=== PATIENT | female | born 1955 | race Caucasian/White ===

== ENCOUNTER 2017-03-31 20:42 | Observation (INO) | payer OTHER ==
--- NOTE | 2017-03-31 21:57 | PDOC ---
History of Present Illness - General Chief Complaint: Pain Stated Complaint: ABD PAIN/FEVER Time Seen by Provider: 03/31/17 21:34 History Source: Patient Exam Limitations: No Limitations - History of Present Illness Travel History: No Initial Comments: 03/31/17 21:55 61-year-old female with a history of diverticulitis presents to the emergency department complaining of lower abdominal pains. Pain is described as 9/10 constant, nonradiating sharp discomfort with subjective fever, nausea but no vomiting x2 weeks. Patient denies chest pain, shortness of breath, flank pains, urinary symptoms: Frequency/urgency/hesitancy, hematuria. Patient says pain is exacerbated when eating and there are no alleviating factors. Patient says the pains feel similar to her previous diverticulitis. Timing/Duration: reports: constant Quality: reports: mild Abdominal Pain Onset Location: reports: RLQ, LLQ Pain Radiation: reports: no radiation Past History - Past Medical History Allergies/Adverse Reactions: Allergies Allergy/AdvReac Type Severity Reaction Status Date / Time No Known Allergies Allergy Verified 03/31/17 20:57 Home Medications: Ambulatory Orders NK [No Known Home Medication] 04/01/17 Other medical history: Pt denies - Surgical History Cholecystectomy: Yes - Psycho/Social/Smoking Cessation Hx Suicidal Ideation: No Smoking History: Never smoked Information on smoking cessation initiated: No Hx Alcohol Use: No Drug/Substance Use Hx: No Substance Use Type: None Review of Systems - Review of Systems Able to Perform ROS?: Yes Comments:: 03/31/17 21:57 CONSTITUTIONAL: +subjective fever Absent: chills, diaphoresis, generalized weakness, malaise, loss of appetite HEENT: Absent: rhinorrhea, nasal congestion, throat pain, throat swelling, difficulty swallowing, mouth swelling, ear pain, eye pain, visual Changes CARDIOVASCULAR: Absent: chest pain, loss of consciousness, palpitations, irregular heart rate, peripheral edema RESPIRATORY: Absent: cough, shortness of breath, dyspnea with exertion, orthopnea, wheezing, stridor, hemoptysis GASTROINTESTINAL: L>RLQ pain, +nausea Absent: abdominal distension, vomiting, diarrhea, constipation, melena, hematochezia GENITOURINARY: Absent: dysuria, frequency, urgency, hesitancy, hematuria, flank pain, genital pain MUSCULOSKELETAL: Absent: myalgia, arthralgia, joint swelling SKIN: Absent: rash, itching, pallor HEMATOLOGIC/IMMUNOLOGIC: Absent: easy bleeding, easy bruising, lymphadenopathy, frequent infections ENDOCRINE: Absent: unexplained weight gain, unexplained weight loss, heat intolerance, cold intolerance NEUROLOGIC: Absent: headache, focal weakness or paresthesias, dizziness, unsteady gait, seizure, mental status changes, bladder or bowel incontinence PSYCHIATRIC: Absent: anxiety, depression, suicidal or homicidal ideation, hallucinations. Is the patient limited Yakut proficient: No *Physical Exam - Vital Signs Last Vital Signs Temp Pulse Resp BP Pulse Ox 98.1 F 77 19 113/62 97 03/31/17 20:57 03/31/17 20:57 03/31/17 20:57 03/31/17 20:57 03/31/17 20:57 - Physical Exam Comments: 03/31/17 21:58 GENERAL: Well developed, well nourished. Awake and alert. No acute distress. HEENT: Normocephalic, atraumatic. PERRLA, EOMI. No conjunctival pallor. Sclera are non- icteric. Moist mucous membranes. Oropharynx is clear. NECK: Supple. Full ROM. No JVD. Carotid pulses 2+ and symmetric, without bruits. No thyromegaly. No lymphadenopathy. CARDIOVASCULAR: Regular rate and rhythm. No murmurs, rubs, or gallops. Distal pulses are 2+ and symmetric. PULMONARY: No evidence of respiratory distress. Lungs clear to auscultation bilaterally. No wheezing, rales or rhonchi. ABDOMINAL: LLQ>RLQ pain on deep palp Soft. Non-distended. No rebound or guarding. No organomegaly. Normoactive bowel sounds. MUSCULOSKELETAL Normal range of motion at all joints. No bony deformities or tenderness. No CVA tenderness. EXTREMITIES: No cyanosis. No clubbing. No edema. No calf tenderness. SKIN: Warm and dry. Normal capillary refill. No rashes. No jaundice. NEUROLOGICAL: Alert, awake, appropriate. Cranial nerves 2-12 intact. No deficits to light touch and temperature in face, upper extremities and lower extremities. No motor deficits in the in face, upper extremities and lower extremities. Normoreflexic in the upper and lower extremities. Normal speech. Toes are down- going bilaterally. Gait is normal without ataxia. PSYCHIATRIC: Cooperative. Good eye contact. Appropriate mood and affect. ED Treatment Course - LABORATORY CBC & Chemistry Diagram: 03/31/17 20:08 03/31/17 20:08 *DC/Admit/Observation/Transfer Diagnosis at time of Disposition: Sigmoid diverticulitis - Discharge Dispostion Condition at time of disposition: Stable Admit: Yes - Referrals Referrals: Kamila Metcalf MD [Primary Care Provider] -
[2017-03-31] MEDS ORDERED: SODIUM CHLORIDE 1,000 ML IV STA (22:04)
[2017-03-31 22:28] LABS: BASOPHIL 0.4 % (0-2.0); EOSINOPHIL 0.5 % (0-4.5); MCH 29.3 pg (25.7-33.7); MCHC 32.7 g/dl (32.0-36.0); MEAN CELL VOLUME 89.7 fl (80-96); MEAN PLT VOLUME 8.3 fl (7.5-11.1); NEUTROPHILS 67.4 % (42.8-82.8); PLATELET COUNT 294 K/MM3 (134-434); RDW 13.2 % (11.6-15.6); WHITE BLOOD COUNT 14.5 K/mm3 (4.0-10.0)
[2017-03-31 22:30] LABS: URINE APPEARANCE CLEAR; URINE BILIRUBIN NEGATIVE (NEGATIVE); URINE BLOOD 1+ (NEGATIVE); URINE COLOR STRAW; URINE GLUCOSE (UA) NEGATIVE (NEGATIVE); URINE KETONE TRACE (NEGATIVE); URINE LEUK ESTERASE NEGATIVE (NEGATIVE); URINE NITRITE NEGATIVE (NEGATIVE); URINE PROTEIN NEGATIVE (NEGATIVE); URINE UROBILINOGEN NEGATIVE mg/dL (0.2-1.0)
[2017-03-31 23:06] LABS: ALBUMIN 3.2 g/dl (3.4-5.0); ALK PHOS 84 U/L (45-117); ANION GAP 6 (8-16); BILIRUBIN,TOTAL 0.5 mg/dL (0.2-1.0); CALCIUM 8.5 mg/dL (8.5-10.1); CO2 29 mmol/L (21-32); CREATININE 0.6 mg/dL (0.55-1.02); GLUCOSE,RANDOM 94 mg/dL (74-106); SGOT/AST 23 U/L (15-37); SGPT/ALT 43 U/L (12-78); TOT PROT 7.1 g/dl (6.4-8.2)
[2017-03-31 23:57] LABS: URINE BACTERIA RARE /hpf (NONE SEEN); URINE RBC 1 /hpf (0-3); URINE WBC 2 /hpf (3-5)
[2017-04-01] MEDS ORDERED: METRONIDAZOLE 500 MG PREMIXED 100 ML IVPB ONE ×2 (02:24→03:02)
[2017-04-01] MEDS ORDERED: LEVOFLOXACIN 500 MG IVPB 100 ML IVPB ONE ×2 (02:24→06:15)
[2017-04-01] MEDS: SODIUM CHLORIDE 1,000 ML IV SCH ×2 (03:14→06:33)
--- NOTE | 2017-04-01 03:19 | HP ---
CHIEF COMPLAINT: " Nausea, vomiting, abdominal pain" PCP: Dr. Mitra Nicole ([place]) HISTORY OF PRESENT ILLNESS: Patient is a 61-year-old female with a history of diverticulitis presented to the emergency department with the chief complaints of nausea, vomiting, abdominal pain x 2weeks. As per the patient, she was apparently well until March 22 when she suddenly started having high grade fevers (Tmax-102F) on/off, associated with chills, but no rigors. It was controlled with tylenol. After two days, she got more sick, had nausea, non bilious, non projectile vomiting. Patient then went to her PCP ( Dr. Manriquez) who prescribed her Ciprofloxacin (Given the h/o prior diverticulitis). After a couple of days, she had several episodes of non bloody diarrhoea, was tested for C. diff which was negative. Her symptoms didn't resolve. Had decreased appetite, dryness of mucous membrane, had low grade fever. It was associated with severe abdominal pain, located in the lower abdomen, crampy in nature, 8-9/10 in severity, non radiating. Hence she came in to the ED for further evaluation and treatment. Denies chest pain, sob, cough, palpitation, headache, dizziness, tingling or numbness. Bladder habit normal. Sleep disturbed since illness. Last colonoscopy done 3 years ago which was normal. ER course was notable for: (1) Afebrile; Hemodynamically stable, leukocytosis of 14.5 (2) Abdominal/Pelvis CT abdomen with contrast (3) IV NS, Levaquin, Flagyl Recent Travel: None PAST MEDICAL HISTORY: Diverticulitis PAST SURGICAL HISTORY: Cholecystectomy, 3 c-sections Social History: Smoking: Denies Alcohol: Occasional Drugs: Denies Family History: Brother- h/o colon cancer (now in remission), diverticulitis; Sister- skin cancer Both daughters had cholecystectomy. Allergies No Known Allergies Allergy (Verified 03/31/17 20:57) HOME MEDICATIONS: Home Medications Medication Instructions Recorded NK [No Known Home Medication] 04/01/17 REVIEW OF SYSTEMS CONSTITUTIONAL: Present: fever, chills, loss of appetite, Absent: diaphoresis, generalized weakness, malaise, weight change HEENT: Absent: rhinorrhea, nasal congestion, throat pain, throat swelling, difficulty swallowing, mouth swelling, ear pain, eye pain, visual changes CARDIOVASCULAR: Absent: chest pain, syncope, palpitations, irregular heart rate, lightheadedness , peripheral edema RESPIRATORY: Absent: cough, shortness of breath, dyspnea with exertion, orthopnea, wheezing, stridor, hemoptysis GASTROINTESTINAL: Present: abdominal pain, abdominal distension, nausea, vomiting, diarrhea Absent: constipation, melena, hematochezia GENITOURINARY: Absent: dysuria, frequency, urgency, hesitancy, hematuria, flank pain, genital pain MUSCULOSKELETAL: Absent: myalgia, arthralgia, joint swelling, back pain, neck pain SKIN: Absent: rash, itching, pallor HEMATOLOGIC/IMMUNOLOGIC: Absent: easy bleeding, easy bruising, lymphadenopathy, frequent infections ENDOCRINE: Absent: unexplained weight gain, unexplained weight loss, heat intolerance, cold intolerance NEUROLOGIC: Absent: headache, focal weakness or paresthesias, dizziness, unsteady gait, seizure, mental status changes, bladder or bowel incontinence PSYCHIATRIC: Absent: anxiety, depression, suicidal or homicidal ideation, hallucinations. PHYSICAL EXAMINATION Vital Signs - 24 hr 03/31/17 20:57 Temperature 98.1 F Pulse Rate 77 Respiratory 19 Rate Blood Pressure 113/62 O2 Sat by Pulse 97 Oximetry (%) GENERAL: female, Awake, alert, and fully oriented, lying comfortably in bed, in no acute distress. HEAD: Normal with no signs of trauma. EYES: EOM intact, no pallor or icterus. EARS, NOSE, THROAT: Ears normal. Moist mucous membranes. NECK: Supple. LUNGS: Breath sounds equal, clear to auscultation bilaterally. No wheezes, and no crackles. No accessory muscle use. HEART: Regular rate and rhythm, normal S1 and S2 without murmur, rub or gallop. ABDOMEN: Soft, tenderness in the lower abdomen, rebound tenderness on left and right lower quadrant, not distended, normoactive bowel sounds, no guarding, no rebound, no masses. No hepatomegaly or splenomegaly. MN exam-deferred. MUSCULOSKELETAL: Normal range of motion at all joints. No bony deformities or tenderness. No CVA tenderness. UPPER EXTREMITIES: 2+ pulses, warm, well-perfused. No cyanosis. No clubbing. No peripheral edema. LOWER EXTREMITIES: 2+ pulses, warm, well-perfused. No calf tenderness. No peripheral edema. NEUROLOGICAL: No facial droop, Cranial nerves II-XII intact. Normal speech. Gait not observed. PSYCHIATRIC: Cooperative. Good eye contact. Appropriate mood and affect. SKIN: Warm, dry, normal turgor, no rashes or lesions noted, normal capillary refill. Laboratory Results - last 24 hr 03/31/17 03/31/17 03/31/17 20:08 20:08 22:08 WBC 14.5 H RBC 4.34 Hgb 12.7 Hct 39.0 MCV 89.7 MCH 29.3 MCHC 32.7 RDW 13.2 Plt Count 294 MPV 8.3 Neutrophils % 67.4 Lymphocytes % 23.5 Monocytes % 8.2 Eosinophils % 0.5 Basophils % 0.4 Sodium 141 Potassium 3.5 Chloride 106 Carbon Dioxide 29 Anion Gap 6 L BUN 7 Creatinine 0.6 Creat Clearance w eGFR > 60 Random Glucose 94 Calcium 8.5 Total Bilirubin 0.5 AST 23 ALT 43 Alkaline Phosphatase 84 Total Protein 7.1 Albumin 3.2 L Urine Color Straw Urine Appearance Clear Urine pH 7.0 Urine Protein Negative Urine Glucose (UA) Negative Urine Ketones Trace H Urine Blood 1+ H Urine Nitrite Negative Urine Bilirubin Negative Urine Urobilinogen Negative Ur Leukocyte Esterase Negative Urine RBC 1 Urine WBC 2 Ur Epithelial Cells Rare Urine Bacteria Rare ASSESSMENT/PLAN: Patient is a 61-year-old female with a history of diverticulitis presented to the emergency department with the chief complaints of nausea, vomiting, abdominal pain. # Abdominal pain-likely due to uncomplicated moderate sigmoid diverticulitis Patient presented with nausea, vomiting, abd pain, with several days of fever at home (T-max 102F), failed outpatient antibiotic therapy. On arrival, patient was Afebrile; Hemodynamically stable, leukocytosis of 14.5 Abdominal/Pelvis CT abdomen with contrast was done which was read as uncomplicated moderate sigmoid diverticulitis (by [facility]) Patient received IV NS, Levaquin, Flagyl in the ED Placed on observation NPO IV NS @ 100mls/hr x 2 bags then reevaluate for fluid management IV Levaquin 500mg Daily-Day 1 IV Metronidazole 500mg Q8H- Day 1 IV Morphine 2mg Q6H PRN for pain control IV Zofran 4mg PRN. GI consult requested. F/up with GI as outpatient. # FEN IV NS @ 100mls/hr Electrolytes normal NPO, can advance to clears in the afternoon if she tolerates. # Prophylaxis For GI: Not indicated For DVT: On Heparin sq # Dispo: Placed in observation. Duration of stay cannot be determined at this time. Illness, Investigation and plan of care explained to the patient. She verbalized understanding. Case seen and discussed with Dr. Ashby. Visit type - Emergency Visit Emergency Visit: Yes ED Registration Date: 04/01/17 Care time: The patient presented to the Emergency Department on the above date and was hospitalized for further evaluation of their emergent condition. - New Patient This patient is new to me today: Yes Date on this admission: 04/01/17 - Critical Care Critical Care patient: No
--- NOTE | 2017-04-01 03:27 | PN ---
Teaching Attending Note Name of Resident: Heidy Foster ATTENDING PHYSICIAN STATEMENT I saw and evaluated the patient. I reviewed the resident's note and discussed the case with the resident. I agree with the resident's findings and plan as documented. SUBJECTIVE: 61 y/o c/o lower quadrant abdominal pain , with fever and vomiting, presented to the ED and on evaluation found to have Diverticulitis. OBJECTIVE: Gen; A&Ox3 in mild distress, afebrile HEENT: PERRLA, EOMI, MMM CVS: RRR Lungs: Equal b/l air entry Abd: soft, tender LLQ especially , no guarding or rebound, BS+. Ext: No edema, nl rom CBCD WBC 14.5 K/mm3 (4.0-10.0) H 03/31/17 20:08 RBC 4.34 M/mm3 (3.60-5.2) 03/31/17 20:08 Hgb 12.7 GM/dL (10.7-15.3) 03/31/17 20:08 Hct 39.0 % (32.4-45.2) 03/31/17 20:08 MCV 89.7 fl (80-96) 03/31/17 20:08 MCHC 32.7 g/dl (32.0-36.0) 03/31/17 20:08 RDW 13.2 % (11.6-15.6) 03/31/17 20:08 Plt Count 294 K/MM3 (134-434) 03/31/17 20:08 MPV 8.3 fl (7.5-11.1) 03/31/17 20:08 CMP Sodium 141 mmol/L (136-145) 03/31/17 20:08 Potassium 3.5 mmol/L (3.5-5.1) 03/31/17 20:08 Chloride 106 mmol/L (98-107) 03/31/17 20:08 Carbon Dioxide 29 mmol/L (21-32) 03/31/17 20:08 Anion Gap 6 (8-16) L 03/31/17 20:08 BUN 7 mg/dL (7-18) 03/31/17 20:08 Creatinine 0.6 mg/dL (0.55-1.02) 03/31/17 20:08 Creat Clearance w eGFR > 60 (>60) 03/31/17 20:08 Calcium 8.5 mg/dL (8.5-10.1) 03/31/17 20:08 Total Bilirubin 0.5 mg/dL (0.2-1.0) 03/31/17 20:08 AST 23 U/L (15-37) 03/31/17 20:08 ALT 43 U/L (12-78) 03/31/17 20:08 Alkaline Phosphatase 84 U/L (45-117) 03/31/17 20:08 Total Protein 7.1 g/dl (6.4-8.2) 03/31/17 20:08 Albumin 3.2 g/dl (3.4-5.0) L 03/31/17 20:08 ASSESSMENT AND PLAN: Acute diverticulitis NPO then advance as tolerated to clear liquid diet IVF NS@125cc/h Levofloxacin and flagyl Tylenol prn for pain and fever morphine 2mg IVP for severe 9-10/10 pain Zofran prn Case d/w residents and plans agreed on.
[2017-04-01] MEDS ORDERED: morphine CARPU-JECT 2 MG/1 ML DISP.SYRIN IVPUSH PRN (04:06)
[2017-04-01] MEDS: METRONIDAZOLE 500 MG PREMIXED 100 ML IVPB SCH ×3 (04:53→21:45)
[2017-04-01 07:20] VITALS: BMI 26.5
[2017-04-01] MEDS ORDERED: ONDANSETRON 4 MG/2 ML VIAL IVPB PRN (07:42)
[2017-04-01] MEDS: HEPARIN NA (PORCINE) 5,000 UNITS/ML 1ML VIAL SQ SCH ×2 (10:33→21:45)
--- NOTE | 2017-04-01 10:58 | HOSP ---
Subjective - Review of Symptoms Events since last encounter: Patient is a 61-year-old female with a history of diverticulitis presented to the emergency department with the chief complaints of nausea, vomiting, abdominal pain x 2weeks, non bloody diarrhea. having diarrhea on and off. Daughter and son at bedside. Vital Signs Temperature 98.3 F 04/01/17 06:00 Pulse Rate 75 04/01/17 06:00 Respiratory Rate 18 04/01/17 06:00 Blood Pressure 110/55 04/01/17 06:00 O2 Sat by Pulse Oximetry (%) 98 04/01/17 06:00 GENERAL: female, Awake, alert, and fully oriented, lying comfortably in bed, in no acute distress. HEAD: Normal with no signs of trauma. EYES: EOM intact, no pallor or icterus. EARS, NOSE, THROAT: Ears normal. Moist mucous membranes. NECK: Supple. LUNGS: Breath sounds equal, clear to auscultation bilaterally. No wheezes, and no crackles. No accessory muscle use. HEART: Regular rate and rhythm, normal S1 and S2 without murmur, rub or gallop. ABDOMEN: Soft, mild tenderness in the LLQ , no rebound tenderness , not distended, positive for bowel sounds, No hepatomegaly or splenomegaly. MUSCULOSKELETAL: Normal range of motion at all joints. No bony deformities or tenderness. No CVA tenderness. EXTREMITIES: 2+ pulses, warm, well-perfused. No cyanosis. No clubbing. No peripheral edema. NEUROLOGICAL: No facial droop, Cranial nerves II-XII intact. Normal speech. Gait not observed. PSYCHIATRIC: Cooperative. Good eye contact. Appropriate mood and affect. SKIN: Warm, dry, normal turgor, no rashes or lesions noted, normal capillary refill. CBCD WBC 14.5 K/mm3 (4.0-10.0) H 03/31/17 20:08 RBC 4.34 M/mm3 (3.60-5.2) 03/31/17 20:08 Hgb 12.7 GM/dL (10.7-15.3) 03/31/17 20:08 Hct 39.0 % (32.4-45.2) 03/31/17 20:08 MCV 89.7 fl (80-96) 03/31/17 20:08 MCHC 32.7 g/dl (32.0-36.0) 03/31/17 20:08 RDW 13.2 % (11.6-15.6) 03/31/17 20:08 Plt Count 294 K/MM3 (134-434) 03/31/17 20:08 MPV 8.3 fl (7.5-11.1) 03/31/17 20:08 CMP Sodium 141 mmol/L (136-145) 03/31/17 20:08 Potassium 3.5 mmol/L (3.5-5.1) 03/31/17 20:08 Chloride 106 mmol/L (98-107) 03/31/17 20:08 Carbon Dioxide 29 mmol/L (21-32) 03/31/17 20:08 Anion Gap 6 (8-16) L 03/31/17 20:08 BUN 7 mg/dL (7-18) 03/31/17 20:08 Creatinine 0.6 mg/dL (0.55-1.02) 03/31/17 20:08 Creat Clearance w eGFR > 60 (>60) 03/31/17 20:08 Random Glucose 94 mg/dL (74-106) 03/31/17 20:08 Calcium 8.5 mg/dL (8.5-10.1) 03/31/17 20:08 Total Bilirubin 0.5 mg/dL (0.2-1.0) 03/31/17 20:08 AST 23 U/L (15-37) 03/31/17 20:08 ALT 43 U/L (12-78) 03/31/17 20:08 Alkaline Phosphatase 84 U/L (45-117) 03/31/17 20:08 Total Protein 7.1 g/dl (6.4-8.2) 03/31/17 20:08 Albumin 3.2 g/dl (3.4-5.0) L 03/31/17 20:08 Current Medications Generic Name Dose Route Start Last Admin Trade Name Emmanuel PRN Reason Stop Dose Admin Heparin Sodium (Porcine) 5,000 unit 04/01/17 10:00 04/01/17 10:33 Heparin - SQ 5,000 unit BID GRADY Administration Sodium Chloride 1,000 mls @ 100 mls/hr 04/01/17 03:00 04/01/17 06:33 Normal Saline - IV 04/02/17 12:59 100 mls/hr ASDIR GRADY Administration Metronidazole 100 mls @ 100 mls/hr 04/01/17 04:15 04/01/17 04:53 Flagyl 500mg Premixed Ivpb - IVPB Not Given Q8H GRADY Levofloxacin 100 mls @ 100 mls/hr 04/02/17 10:00 Levaquin 500 Mg Premixed Ivpb - IVPB DAILY GRADY Morphine Sulfate 2 mg 04/01/17 04:06 Morphine Injection - IVPUSH Q6H PRN PAIN Ondansetron HCl 4 mg 04/01/17 07:42 Zofran Injection IVPB Q6H PRN NAUSEA Home Medications Medication Instructions Recorded Sertraline HCl [Zoloft -] 25 mg PO DAILY 04/01/17 Urine Test Results Urine Color Straw 03/31/17 22:08 Urine Appearance Clear 03/31/17 22:08 Urine pH 7.0 (5.0-8.0) 03/31/17 22:08 Urine Protein Negative (NEGATIVE) 03/31/17 22:08 Urine Glucose (UA) Negative (NEGATIVE) 03/31/17 22:08 Urine Ketones Trace (NEGATIVE) H 03/31/17 22:08 Urine Blood 1+ (NEGATIVE) H 03/31/17 22:08 Urine Nitrite Negative (NEGATIVE) 03/31/17 22:08 Urine Bilirubin Negative (NEGATIVE) 03/31/17 22:08 Ur Leukocyte Esterase Negative (NEGATIVE) 03/31/17 22:08 Urine RBC 1 /hpf (0-3) 03/31/17 22:08 Urine WBC 2 /hpf (3-5) 03/31/17 22:08 Ur Epithelial Cells Rare /hpf (FEW) 03/31/17 22:08 Urine Bacteria Rare /hpf (NONE SEEN) 03/31/17 22:08 A/P: Patient is a 61-year-old female with a history of diverticulitis presented to the emergency department with the chief complaints of nausea, vomiting, abdominal pain x 2 weeks. # Acute sigmoid diverticulitis on IV antibiotics continue; Gi consult appreciated will advance diet to clears and as tolerated . DVT Px: On Heparin sq Physical Examination Vital Signs: Vital Signs Temperature 98.3 F 04/01/17 06:00 Pulse Rate 75 04/01/17 06:00 Respiratory Rate 18 04/01/17 06:00 Blood Pressure 110/55 04/01/17 06:00 O2 Sat by Pulse Oximetry (%) 98 04/01/17 06:00
--- NOTE | 2017-04-01 14:10 | CON.GI ---
Consult Consult Specialty:: Gastroenterology Referred by:: Dr Castillo Reason for Consultation:: Diverticulitis - History of Present Illness Chief Complaint: LLQ pain and diarrhea History of Present Illness: 61W has been having intermittent LLQ pain since February. The pain was associated with diarrhea initially and this has recurred with this episode. She denies any recent decrease in stool caliber of weight loss. She was treated with a 4 day course of Cipro by her PMD a few weeks ago. Yesterday her pain got worse and was associated with chills and fever. Her brother had colon cancer. She had a colonoscopy in [address] Nicole in the [place] which she reports was normal. She denies any rectal bleeding. She had an EGD with Dr Hurt remotely which was also normal. - History Source History Provided By: Patient Limitations to Obtaining History: No Limitations - Past Medical History Gastrointestinal: Yes: Diverticulitis, GERD Hepatobiliary: Yes: Cholelithiasis (s/p lap choly), Hepatitis A (remotely) Psych: Yes: Depression, Panic - Past Surgical History Past Surgical History: Yes: Cholecystectomy, Colonoscopy, (x 3), Upper Endoscopy Additional Surgical History: bunionectomy - Alcohol/Substance Use Hx Alcohol Use: No History of Substance Use: reports: None - Smoking History Smoking history: Never smoked - Social History Usual Living Arrangement: With Significant Other ADL: Independent Occupation: portfolio administrator at [employer] Place of : Other ([place]) Came to [place] (year): age 27 History of Recent Travel: No Home Medications - Allergies Allergies/Adverse Reactions: Allergies Allergy/AdvReac Type Severity Reaction Status Date / Time No Known Allergies Allergy Verified 03/31/17 20:57 - Home Medications Home Medications: Ambulatory Orders Sertraline HCl [Zoloft -] 25 mg PO DAILY 04/01/17 Family Disease History - Family Disease History Family Disease History: Heart Disease: Father ( [place] age 65), [place]: Brother ( colon cancer), Sister (skin cancer), Other: Mother ( of a GI problem) Review of Systems - Review of Systems Constitutional: reports: Chills, Fever Eyes: reports: No Symptoms HENT: reports: No Symptoms Neck: reports: No Symptoms Cardiovascular: reports: No Symptoms Respiratory: reports: No Symptoms Gastrointestinal: reports: Abdominal Pain, Diarrhea, Other (acid reflux) Genitourinary: reports: No Symptoms Musculoskeletal: reports: No Symptoms Neurological: reports: No Symptoms Psychiatric: reports: Anxiety, Depression Physical Exam-GI Vital Signs: Vital Signs Temperature 98.3 F 04/01/17 06:00 Pulse Rate 73 04/01/17 10:00 Respiratory Rate 18 04/01/17 10:00 Blood Pressure 105/59 04/01/17 10:00 O2 Sat by Pulse Oximetry (%) 98 04/01/17 06:00 CBC,CMP WBC 14.5 K/mm3 (4.0-10.0) H 03/31/17 20:08 RBC 4.34 M/mm3 (3.60-5.2) 03/31/17 20:08 Hgb 12.7 GM/dL (10.7-15.3) 03/31/17 20:08 Hct 39.0 % (32.4-45.2) 03/31/17 20:08 MCV 89.7 fl (80-96) 03/31/17 20:08 MCH 29.3 pg (25.7-33.7) 03/31/17 20:08 MCHC 32.7 g/dl (32.0-36.0) 03/31/17 20:08 RDW 13.2 % (11.6-15.6) 03/31/17 20:08 Plt Count 294 K/MM3 (134-434) 03/31/17 20:08 MPV 8.3 fl (7.5-11.1) 03/31/17 20:08 Neutrophils % 67.4 % (42.8-82.8) 03/31/17 20:08 Lymphocytes % 23.5 % (8-40) 03/31/17 20:08 Monocytes % 8.2 % (3.8-10.2) 03/31/17 20:08 Eosinophils % 0.5 % (0-4.5) 03/31/17 20:08 Basophils % 0.4 % (0-2.0) 03/31/17 20:08 Sodium 141 mmol/L (136-145) 03/31/17 20:08 Potassium 3.5 mmol/L (3.5-5.1) 03/31/17 20:08 Chloride 106 mmol/L (98-107) 03/31/17 20:08 Carbon Dioxide 29 mmol/L (21-32) 03/31/17 20:08 Anion Gap 6 (8-16) L 03/31/17 20:08 BUN 7 mg/dL (7-18) 03/31/17 20:08 Creatinine 0.6 mg/dL (0.55-1.02) 03/31/17 20:08 Creat Clearance w eGFR > 60 (>60) 03/31/17 20:08 Random Glucose 94 mg/dL (74-106) 03/31/17 20:08 Calcium 8.5 mg/dL (8.5-10.1) 03/31/17 20:08 Total Bilirubin 0.5 mg/dL (0.2-1.0) 03/31/17 20:08 AST 23 U/L (15-37) 03/31/17 20:08 ALT 43 U/L (12-78) 03/31/17 20:08 Alkaline Phosphatase 84 U/L (45-117) 03/31/17 20:08 Total Protein 7.1 g/dl (6.4-8.2) 03/31/17 20:08 Albumin 3.2 g/dl (3.4-5.0) L 03/31/17 20:08 Current Medications Generic Name Dose Route Start Last Admin Trade Name Meñoq PRN Reason Stop Dose Admin Heparin Sodium (Porcine) 5,000 unit 04/01/17 10:00 04/01/17 10:33 Heparin - SQ 5,000 unit BID GRADY Administration Sodium Chloride 1,000 mls @ 100 mls/hr 04/01/17 03:00 04/01/17 06:33 Normal Saline - IV 04/02/17 12:59 100 mls/hr ASDIR GRADY Administration Metronidazole 100 mls @ 100 mls/hr 04/01/17 04:15 04/01/17 13:33 Flagyl 500mg Premixed Ivpb - IVPB 100 mls/hr Q8H GRADY Administration Levofloxacin 100 mls @ 100 mls/hr 04/02/17 10:00 Levaquin 500 Mg Premixed Ivpb - IVPB DAILY GRADY Morphine Sulfate 2 mg 04/01/17 04:06 Morphine Injection - IVPUSH Q6H PRN PAIN Ondansetron HCl 4 mg 04/01/17 07:42 Zofran Injection IVPB Q6H PRN NAUSEA Constitutional: Yes: Anxious Eyes: Yes: Conjunctiva Clear HENT: Yes: Normocephalic Neck: Yes: Supple Cardiovascular: Yes: Regular Rate and Rhythm Respiratory: Yes: CTA Bilaterally Gastrointestinal Inspection: Yes: Distention, Scars (healed vertical suprapubic and laparoscopic incisions) ...Auscultate: Yes: Hypoactive Bowel Sounds ...Palpate: Yes: Tenderness (LLQ but no reblund, no kenya) ...Rectal Exam: Yes: Guaiac Negative, Sphincter Tone Normal, Other (no kenya) Imaging - Results Cat Scan: Report Reviewed (Raphael Liang Name: [facility] Phys: Valeria Paredes : 1955 Age: 61 Sex: F [facility] Acct: [id number] Loc: [address] Exam Date: Status: [place] [address] Unit Number: [id number] EXAM#: TYPE/EXAM: RESULT: [id number] CT/ ABDOMEN PELVIS CT WITH CONTR Abdomen and pelvis CT (with intravenous contrast) Clinical information: lower abdominal pain, history of diverticulitis Multiplanar imaging was performed utilizing intravenous and oral contrast. No prior imaging studies are available at this facility for direct comparison. Sigmoid diverticulosis is seen with associated concentric wall edema involving the mid to lower third as well as pericolonic edema consistent with acute diverticulitis. No extraluminal air, abscess, free intraperitoneal fluid or bowel obstruction is noted. The liver, pancreas, adrenal glands and kidneys demonstrate no discrete noncontrast abnormality. Status post cholecystectomy. No definite biliary tract dilatation. There is no aortic aneurysm. No obvious lymphadenopathy is noted. The appendix appears unremarkable. No definite pelvic pathology is seen. Impression: Acute uncomplicated sigmoid diverticulitis. Status post cholecystectomy. Reported By: Jayce Blanc MD [address] Val[address] Paredes Technologist: Miguel Painter Transcribed Date/Time: 1139 Horse [employer] Manager: Jayce Blanc Printed Date/Time: [ rep prt dt last] [ rep prt tm last] By: [ rep prt user last] Signed by: Jayce Blanc Signed on: 01-Apr-2017 11:42), Image Reviewed (sigmoid diverticulitis) Problem List - Problems (1) Family history of colon cancer Code(s): Z80.0 - FAMILY HISTORY OF MALIGNANT NEOPLASM OF DIGESTIVE ORGANS (2) Depression Code(s): F32.9 - MAJOR DEPRESSIVE DISORDER, SINGLE EPISODE, UNSPECIFIED (3) Panic anxiety syndrome Code(s): F41.0 - PANIC DISORDER WITHOUT AGORAPHOBIA Assessment/Plan Given the preceding pain and diarrhea the picture is most consistent with a smoldering diverticulitis but C diff colitis will need to be excluded. Ischemic colitis is not likely given there is no bleeding. Agree with current antibiotics. Will advance diet as tolerated. Discussed earlier with Dr Castillo. Given her FH advised repeat colonoscopy in 2019 but may need sooner if symptoms recur.
[2017-04-01] MEDS ORDERED: SODIUM CHLORIDE 1,000 ML IV STA (23:28)
[2017-04-02] MEDS: METRONIDAZOLE 500 MG PREMIXED 100 ML IVPB SCH ×3 (06:04→20:32)
[2017-04-02 08:03] LABS: BASOPHIL 0.4 % (0-2.0); EOSINOPHIL 1.2 % (0-4.5); MCHC 33.4 g/dl (32.0-36.0); MEAN CELL VOLUME 89.9 fl (80-96); MEAN PLT VOLUME 7.9 fl (7.5-11.1); NEUTROPHILS 63.5 % (42.8-82.8); PLATELET COUNT 370 K/MM3 (134-434); RDW 13.2 % (11.6-15.6); WHITE BLOOD COUNT 9.8 K/mm3 (4.0-10.0)
--- NOTE | 2017-04-02 09:18 | PN ---
Teaching Attending Note Name of Resident: James Hebert ATTENDING PHYSICIAN STATEMENT I saw and evaluated the patient. I reviewed the resident's note and discussed the case with the resident. I agree with the resident's findings and plan as documented. SUBJECTIVE: Patient is comfortable ,still continuing to have diarrhea after drinking. OBJECTIVE: Vital Signs Temperature 98.3 F 04/02/17 06:05 Pulse Rate 77 04/02/17 06:05 Respiratory Rate 20 04/02/17 06:05 Blood Pressure 106/66 04/02/17 06:05 O2 Sat by Pulse Oximetry (%) 96 04/01/17 21:00 CBCD WBC 9.8 K/mm3 (4.0-10.0) D 04/02/17 06:00 RBC 4.57 M/mm3 (3.60-5.2) 04/02/17 06:00 Hgb 13.7 GM/dL (10.7-15.3) 04/02/17 06:00 Hct 41.1 % (32.4-45.2) 04/02/17 06:00 MCV 89.9 fl (80-96) 04/02/17 06:00 MCHC 33.4 g/dl (32.0-36.0) 04/02/17 06:00 RDW 13.2 % (11.6-15.6) 04/02/17 06:00 Plt Count 370 K/MM3 (134-434) D 04/02/17 06:00 MPV 7.9 fl (7.5-11.1) 04/02/17 06:00 CMP Sodium 141 mmol/L (136-145) 03/31/17 20:08 Potassium 3.5 mmol/L (3.5-5.1) 03/31/17 20:08 Chloride 106 mmol/L (98-107) 03/31/17 20:08 Carbon Dioxide 29 mmol/L (21-32) 03/31/17 20:08 Anion Gap 6 (8-16) L 03/31/17 20:08 BUN 7 mg/dL (7-18) 03/31/17 20:08 Creatinine 0.6 mg/dL (0.55-1.02) 03/31/17 20:08 Creat Clearance w eGFR > 60 (>60) 03/31/17 20:08 Random Glucose 94 mg/dL (74-106) 03/31/17 20:08 Calcium 8.5 mg/dL (8.5-10.1) 03/31/17 20:08 Total Bilirubin 0.5 mg/dL (0.2-1.0) 03/31/17 20:08 AST 23 U/L (15-37) 03/31/17 20:08 ALT 43 U/L (12-78) 03/31/17 20:08 Alkaline Phosphatase 84 U/L (45-117) 03/31/17 20:08 Total Protein 7.1 g/dl (6.4-8.2) 03/31/17 20:08 Albumin 3.2 g/dl (3.4-5.0) L 03/31/17 20:08 Current Medications Generic Name Dose Route Start Last Admin Trade Name Freq PRN Reason Stop Dose Admin Heparin Sodium (Porcine) 5,000 unit 04/01/17 10:00 04/01/17 21:45 Heparin - SQ 5,000 unit BID GRADY Administration Sodium Chloride 1,000 mls @ 100 mls/hr 04/01/17 03:00 04/01/17 06:33 Normal Saline - IV 04/02/17 12:59 100 mls/hr ASDIR GRADY Administration Metronidazole 100 mls @ 100 mls/hr 04/01/17 04:15 04/02/17 06:04 Flagyl 500mg Premixed Ivpb - IVPB 100 mls/hr Q8H GRADY Administration Levofloxacin 100 mls @ 100 mls/hr 04/02/17 10:00 Levaquin 500 Mg Premixed Ivpb - IVPB DAILY GRADY Morphine Sulfate 2 mg 04/01/17 04:06 Morphine Injection - IVPUSH Q6H PRN PAIN Ondansetron HCl 4 mg 04/01/17 07:42 Zofran Injection IVPB Q6H PRN NAUSEA Home Medications Medication Instructions Recorded Sertraline HCl [Zoloft -] 25 mg PO DAILY 04/01/17 PE: Per resident's note Abdomen: soft, NT, NR, NG, BS positive ASSESSMENT AND PLAN: Patient is a 61-year-old female with a history of diverticulitis presented to the emergency department with the chief complaints of nausea, vomiting, abdominal pain x 2 weeks. # Acute sigmoid diverticulitis on IV antibiotics continue continue; Gi consult discussed with. will advance diet to solids, will discharge her in am if stable. DVT Px: On Heparin sq
[2017-04-02] MEDS: HEPARIN NA (PORCINE) 5,000 UNITS/ML 1ML VIAL SQ SCH ×2 (09:47→22:27)
[2017-04-02] MEDS: LEVOFLOXACIN 500 MG IVPB 100 ML IVPB SCH (09:47)
[2017-04-02] MEDS: SODIUM CHLORIDE 1,000 ML IV SCH (11:33)
--- NOTE | 2017-04-02 16:43 | PN ---
GI Progress Note Subjective: GI NOte: Pain has subsided. Tolerated solid for lunch. WBC has dropped. No fever. C diff is negative - Objective Vital Signs: Vital Signs Temperature 98.5 F 04/02/17 15:07 Pulse Rate 75 04/02/17 15:07 Respiratory Rate 18 04/02/17 15:07 Blood Pressure 117/53 04/02/17 10:00 O2 Sat by Pulse Oximetry (%) 96 04/01/17 21:00 Laboratory Tests 03/31/17 04/02/17 20:08 06:00 WBC 14.5 H 9.8 D Constitutional: Anxious ...Auscultate: Yes: Normoactive Bowel Sounds ...Palpate: Yes: Soft, Other (nontender) Labs: CBC, BMP 04/02/17 06:00 Assessment/Plan Resolving diverticulitis. Agree with advancement of diet. If tolerated can discharge tomorrow. Discussed earlier with Dr Castillo. 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
[2017-04-02] MEDS ORDERED: KCL 10 MEQ IVPB 100 ML IVPB SCH (16:45)
--- NOTE | 2017-04-02 19:53 | PN ---
Physical Exam: SUBJECTIVE: Patient seen and examined this AM. Is tolerating clear liquids. Pt is in less pain. Still complains of diarrhea, will advance to low fiber/low residue diet. Feels much better today. No CP, no SOB, no fevers, no chills. OBJECTIVE: Vital Signs Period Temp Pulse Resp BP Sys/Zazeuta Pulse Ox Last 24 Hr 98.3 F-99.4 F 68-77 18-20 97-117/48-66 96 GENERAL: Awake, alert, and fully oriented, was seen walking in hallway, in no acute distress. HEENT: PERRLA, EOMi, moist mucous membranes LUNGS: Breath sounds equal, clear to auscultation bilaterally. No wheezes, and no crackles. No accessory muscle use. HEART: Regular rate and rhythm, normal S1 and S2 without murmur, rub or gallop. ABDOMEN: Soft, decreased tenderness in the lower abdomen, no rebound, not distended, normoactive bowel sounds, no guarding MUSCULOSKELETAL: Normal range of motion at all joints. No bony deformities or tenderness. No CVA tenderness. UPPER EXTREMITIES: 2+ pulses, warm, well-perfused. No cyanosis. No clubbing. No peripheral edema. LOWER EXTREMITIES: 2+ pulses, warm, well-perfused. No calf tenderness. No peripheral edema. NEUROLOGICAL: No facial droop, Cranial nerves II-XII intact. Normal speech. Gait not observed. Laboratory Results - last 24 hr 04/02/17 06:00 WBC 9.8 D RBC 4.57 Hgb 13.7 Hct 41.1 MCV 89.9 MCH 30.0 MCHC 33.4 RDW 13.2 Plt Count 370 D MPV 7.9 Neutrophils % 63.5 Lymphocytes % 29.1 D Monocytes % 5.8 Eosinophils % 1.2 D Basophils % 0.4 Active Medications Generic Name Dose Route Start Last Admin Trade Name Freq PRN Reason Stop Dose Admin Heparin Sodium (Porcine) 5,000 unit 04/01/17 10:00 04/02/17 09:47 Heparin - SQ 5,000 unit BID GRADY Administration Metronidazole 100 mls @ 100 mls/hr 04/01/17 04:15 04/02/17 13:07 Flagyl 500mg Premixed Ivpb - IVPB 100 mls/hr Q8H GRADY Administration Levofloxacin 100 mls @ 100 mls/hr 04/02/17 10:00 04/02/17 09:47 Levaquin 500 Mg Premixed Ivpb - IVPB 100 mls/hr DAILY GRADY Administration Morphine Sulfate 2 mg 04/01/17 04:06 Morphine Injection - IVPUSH Q6H PRN PAIN Ondansetron HCl 4 mg 04/01/17 07:42 Zofran Injection IVPB Q6H PRN NAUSEA ASSESSMENT/PLAN: Patient is a 61-year-old female with a history of diverticulitis presented to the emergency department with the chief complaints of nausea, vomiting, abdominal pain. SHe had several days of fever at home (Tmax 102), and failed outpatient Ciprofloxain antibiotic therapy. # Sigmoid Diverticulitis - uncomplicated - CT abd/pelvis with contrast - acute uncomplicated sigmoid diverticulitis; imaging is well correlated with pt's presentation - Pt treatd with Levaquin 500mg QD (Started 04/01) + Flagyl 500mg Q8 (Started ) - WBC trending down 14.5 --> 9.8 - Diet transitioned from NPO + IVNS--> clears --> low fiber/low residue diet, see if can tolerate - Zofran 4mg PRN for nausea - GI consulted, appreciate reccs # FEN - Fluids: Not on fluids - Electrolytes: WNL, continue to monitor - Nutrition: Now in low fiber/low residue, see if she tolerates # Prophylaxis - DVT: Heparin SQ 5,000 BID - GI: Not indicated - Deconditioning: Pt is ambulating frequently # Disposition - Pt on obs Visit type - Emergency Visit Emergency Visit: No - New Patient This patient is new to me today: No - Critical Care Critical Care patient: No - Discharge Referral Referred to [facility] No
[2017-04-03] MEDS: METRONIDAZOLE 500 MG PREMIXED 100 ML IVPB SCH (04:34)
[2017-04-03 07:01] LABS: BASOPHIL 0.6 % (0-2.0); MCHC 33.3 g/dl (32.0-36.0); MEAN CELL VOLUME 90.2 fl (80-96); MEAN PLT VOLUME 7.6 fl (7.5-11.1); NEUTROPHILS 54.9 % (42.8-82.8); PLATELET COUNT 403 K/MM3 (134-434); WHITE BLOOD COUNT 7.3 K/mm3 (4.0-10.0)
[2017-04-03 07:35] LABS: ANION GAP 4 (8-16); CALCIUM 8.1 mg/dL (8.5-10.1); CO2 31 mmol/L (21-32); CREATININE 0.5 mg/dL (0.55-1.02); GLUCOSE,RANDOM 102 mg/dL (74-106)
--- NOTE | 2017-04-03 08:41 | PN ---
Physical Exam: GI Follow up. SUBJECTIVE: Patient seen and examined Patient sitting comfortably in chair. States pain has significantly decreased. States she had bowel movement this morning which was soft. Patient also reports that she feels nauseated after eating food but had no vomiting. Denies fever, chills. Accepting low fiber and low residual diet. WBC has decreased from 14.8 to 7.3, no episode of fever in last 24 hours. OBJECTIVE: Vital Signs Period Temp Pulse Resp BP Sys/Zazueta Pulse Ox Last 24 Hr 97.5 F-99.4 F 66-75 18-18 103-117/53-56 96 GENERAL: The patient is awake, alert, and fully oriented, in no acute distress. ENT: dry mucous membranes. LUNGS: Breath sounds equal, clear to auscultation bilaterally, no wheezes, no crackles, no accessory muscle use. HEART: s1s2 normal ABDOMEN: Soft, nontender, nondistended, normoactive bowel sounds, no guarding, mild rebound tenderness present, EXTREMITIES: warm, no edema. SKIN: Warm, dry, Laboratory Results - last 24 hr 04/03/17 04/03/17 06:30 06:30 WBC 7.3 RBC 4.27 Hgb 12.8 Hct 38.5 MCV 90.2 MCH 30.0 MCHC 33.3 RDW 13.0 Plt Count 403 MPV 7.6 Neutrophils % 54.9 Lymphocytes % 34.4 Monocytes % 8.1 Eosinophils % 2.0 Basophils % 0.6 Sodium 143 Potassium 3.7 Chloride 108 H Carbon Dioxide 31 Anion Gap 4 L BUN 6 L Creatinine 0.5 L Random Glucose 102 Calcium 8.1 L Active Medications Generic Name Dose Route Start Last Admin Trade Name Freq PRN Reason Stop Dose Admin Heparin Sodium (Porcine) 5,000 unit 04/01/17 10:00 04/02/17 22:27 Heparin - SQ 5,000 unit BID GRADY Administration Metronidazole 100 mls @ 100 mls/hr 04/01/17 04:15 04/03/17 04:34 Flagyl 500mg Premixed Ivpb - IVPB 100 mls/hr Q8H GRADY Administration Levofloxacin 100 mls @ 100 mls/hr 04/02/17 10:00 04/02/17 09:47 Levaquin 500 Mg Premixed Ivpb - IVPB 100 mls/hr DAILY GRADY Administration Morphine Sulfate 2 mg 04/01/17 04:06 Morphine Injection - IVPUSH Q6H PRN PAIN Ondansetron HCl 4 mg 04/01/17 07:42 Zofran Injection IVPB Q6H PRN NAUSEA Intake & Output 03/31/17 04/01/17 04/02/17 04/03/17 23:59 23:59 23:59 23:59 Intake Total 1200 1800 1400 Balance 1200 1800 1400 Weight 57.606 kg 55.61 kg ASSESSMENT 1. Acute Diverticulitis 2. Family history of colon cancer 3. Depression Plan Resolving diverticulitis. Patient is tolerating oral diet. Need to increase PO intake ( in last 24Hr PO intake was 500). Continue with low fiber and low residual diet for one week than slowly advance the diet. Antibiotic as per primary team. Visit type - Emergency Visit Emergency Visit: Yes ED Registration Date: 04/01/17 Care time: The patient presented to the Emergency Department on the above date and was hospitalized for further evaluation of their emergent condition. - New Patient This patient is new to me today: Yes Date on this admission: 04/03/17 - Critical Care Critical Care patient: No
--- NOTE | 2017-04-03 09:28 | EKG ---
Test Reason : Blood Pressure : / mmHG Vent. Rate : 073 BPM Atrial Rate : 073 BPM P-R Int : 142 ms QRS Dur : 084 ms QT Int : 392 ms P-R-T Axes : 055 073 042 degrees QTc Int : 431 ms SINUS RHYTHM WITH PREMATURE SUPRAVENTRICULAR COMPLEXES OTHERWISE NORMAL ECG NO PREVIOUS ECGS AVAILABLE Confirmed by ANNE EVANS, NATALIE ([id number]) on 04/03/2017 9:28:14 AM Referred By: Confirmed By:NATALIE RODRÍGUEZ MD
[2017-04-03] MEDS: LEVOFLOXACIN 500 MG IVPB 100 ML IVPB SCH (09:32)
[2017-04-03] MEDS: HEPARIN NA (PORCINE) 5,000 UNITS/ML 1ML VIAL SQ SCH (09:34)
--- NOTE | 2017-04-03 12:16 | PN ---
Progress Note (short form) - Note Progress Note: GI NOte: Pain free. WBC down. K up to 3.8. \ PE: Calm Abd: BS normoactive nontender No GI objections to discharge. Problem List - Problems (1) Family history of colon cancer Code(s): Z80.0 - FAMILY HISTORY OF MALIGNANT NEOPLASM OF DIGESTIVE ORGANS (2) Depression Code(s): F32.9 - MAJOR DEPRESSIVE DISORDER, SINGLE EPISODE, UNSPECIFIED (3) Panic anxiety syndrome Code(s): F41.0 - PANIC DISORDER WITHOUT AGORAPHOBIA
[2017-04-03 12:19] VITALS: BP 114/65; PULSE 74; TEMP 98
--- NOTE | 2017-04-03 16:03 | PN ---
Teaching Attending Note Name of Resident: James Hebert ATTENDING PHYSICIAN STATEMENT I saw and evaluated the patient. I reviewed the resident's note and discussed the case with the resident. I agree with the resident's findings and plan as documented. SUBJECTIVE: Patient is comfortable with no further pain. no fever or chills, no shortness of breath. OBJECTIVE: Vital Signs Temperature 98 F 04/03/17 10:00 Pulse Rate 74 04/03/17 10:00 Respiratory Rate 18 04/03/17 10:00 Blood Pressure 114/65 04/03/17 10:00 O2 Sat by Pulse Oximetry (%) 96 04/02/17 21:00 CBCD WBC 7.3 K/mm3 (4.0-10.0) 04/03/17 06:30 RBC 4.27 M/mm3 (3.60-5.2) 04/03/17 06:30 Hgb 12.8 GM/dL (10.7-15.3) 04/03/17 06:30 Hct 38.5 % (32.4-45.2) 04/03/17 06:30 MCV 90.2 fl (80-96) 04/03/17 06:30 MCHC 33.3 g/dl (32.0-36.0) 04/03/17 06:30 RDW 13.0 % (11.6-15.6) 04/03/17 06:30 Plt Count 403 K/MM3 (134-434) 04/03/17 06:30 MPV 7.6 fl (7.5-11.1) 04/03/17 06:30 CMP Sodium 143 mmol/L (136-145) 04/03/17 06:30 Potassium 3.7 mmol/L (3.5-5.1) 04/03/17 06:30 Chloride 108 mmol/L (98-107) H 04/03/17 06:30 Carbon Dioxide 31 mmol/L (21-32) 04/03/17 06:30 Anion Gap 4 (8-16) L 04/03/17 06:30 BUN 6 mg/dL (7-18) L 04/03/17 06:30 Creatinine 0.5 mg/dL (0.55-1.02) L 04/03/17 06:30 Creat Clearance w eGFR > 60 (>60) 03/31/17 20:08 Random Glucose 102 mg/dL (74-106) 04/03/17 06:30 Calcium 8.1 mg/dL (8.5-10.1) L 04/03/17 06:30 Total Bilirubin 0.5 mg/dL (0.2-1.0) 03/31/17 20:08 AST 23 U/L (15-37) 03/31/17 20:08 ALT 43 U/L (12-78) 03/31/17 20:08 Alkaline Phosphatase 84 U/L (45-117) 03/31/17 20:08 Total Protein 7.1 g/dl (6.4-8.2) 03/31/17 20:08 Albumin 3.2 g/dl (3.4-5.0) L 03/31/17 20:08 Home Medications Medication Instructions Recorded Sertraline HCl [Zoloft -] 25 mg PO DAILY 04/01/17 Lactobacillus Acidophilus [Bacid -] 1 each PO BID #30 capsule 04/03/17 Levofloxacin [Levaquin -] 500 mg PO DAILY #4 tablet 04/03/17 Metronidazole [Flagyl -] 500 mg PO TID #12 tablet 04/03/17 PE: Per resident's note Abdomen: soft, NT, NR, NG, BS positive ASSESSMENT AND PLAN: Patient is a 61-year-old female with a history of diverticulitis presented to the emergency department with the chief complaints of nausea, vomiting, abdominal pain x 2 weeks. # Acute sigmoid diverticulitis improved s/p IV antibiotics . Will discharge her home with 4 more days of oral antibiotic. Follow with PMD as an outpatient. Follow up with as an outpatient. Tolerated diet well. Ok to discharge her as per GI. discharged meds. as above.
--- NOTE | 2017-04-03 16:28 | DS ---
Physical Exam: SUBJECTIVE: Patient seen and examined this AM. Feels much better, decreased abdominal pain. Tolerating diet advancement well OBJECTIVE: Vital Signs Period Temp Pulse Resp BP Sys/Zazueta Pulse Ox Last 24 Hr 97.5 F-99.4 F 66-74 18-18 103-114/54-65 96 PHYSICAL EXAM GENERAL: Awake, alert, and fully oriented, was seen walking in hallway, in no acute distress. HEENT: PERRLA, EOMi, moist mucous membranes LUNGS: Breath sounds equal, clear to auscultation bilaterally. No wheezes, and no crackles. No accessory muscle use. HEART: Regular rate and rhythm, normal S1 and S2 without murmur, rub or gallop. ABDOMEN: Soft, decreased tenderness in the lower abdomen, no rebound, not distended, normoactive bowel sounds, no guarding MUSCULOSKELETAL: Normal range of motion at all joints. No bony deformities or tenderness. No CVA tenderness. UPPER EXTREMITIES: 2+ pulses, warm, well-perfused. No cyanosis. No clubbing. No peripheral edema. LOWER EXTREMITIES: 2+ pulses, warm, well-perfused. No calf tenderness. No peripheral edema. NEUROLOGICAL: No facial droop, Cranial nerves II-XII intact. Normal speech. Gait not observed. LABS Laboratory Results - last 24 hr 04/03/17 04/03/17 06:30 06:30 WBC 7.3 RBC 4.27 Hgb 12.8 Hct 38.5 MCV 90.2 MCH 30.0 MCHC 33.3 RDW 13.0 Plt Count 403 MPV 7.6 Neutrophils % 54.9 Lymphocytes % 34.4 Monocytes % 8.1 Eosinophils % 2.0 Basophils % 0.6 Sodium 143 Potassium 3.7 Chloride 108 H Carbon Dioxide 31 Anion Gap 4 L BUN 6 L Creatinine 0.5 L Random Glucose 102 Calcium 8.1 L HOSPITAL COURSE: Date of Admission:04/01/17 Date of Discharge: 04/03/17 ASSESSMENT/PLAN: Judy Aviles is a 61-year-old female with a history of diverticulitis who presented to the emergency department with the chief complaints of nausea, vomiting, abdominal pain. She was admitted for uncomplicated sigmoid diverticulitis. Before the patient arrived in the ER, she had several days of fever at home (Tmax 102), and failed outpatient Ciprofloxacin antibiotic therapy. # Uncomplicated Sigmoid Diverticulitis - A CT abdomen/pelvis with contrast revealed an acute uncomplicated sigmoid diverticulitis, which is well correlated with patient's presentation. The patient was started on IV Levaquin 500mg QD and IV Flagyl 500mg Q8, and completed 3 days of antibiotic therapy in the hospital. During that time her white blood cell count trended down from 14.5 to 9.8 at discharge, and the patient remained afebrile. The patient's diet was slowly adjusted from NPO to clears to low fiber/low residue diet, which she tolerated well. Gastroenterology Dr. Jordan followed the patient closely throughout the hospitalization. The patient will be discharged on 4 more days of Levaquin and Flagyl, for a total of 7 days of antibiotic therapy. She will followup with her primary care doctor and pc installation engineer as an outpatient. The patient was made aware of the hospital course and agrees with the plan Minutes to complete discharge: 55 Discharge Summary Reason For Visit: DIVERTICULITIS OF SIGMOID COLON Condition: Improved - Instructions Diet, Activity, Other Instructions: You were admitted because you had an infection in the sigmoid part of your large intestine. The infection is called diverticulitis. We treated you with IV antibiotics for 3 days and you improved. Please take the following antibiotics for the next four days. Levofloxacin 500mg PO daily for 4 more days Metronidazole 500mg PO three times a day for 4 more days Bacid 1 tab two times a day Please avoid alcohol especially while you are taking your antibiotics Please followup with your Primary Care physician in 1 week. Please followup with your pc installation engineer. If you have any serious symptoms, please return to the ER Referrals: Kamila Metcalf MD [Primary Care Provider] - 1 Week Bob Jordan MD [Staff Physician] - 1 Week Disposition: HOME - Home Medications Comprehensive Discharge Medication List: Ambulatory Orders Sertraline HCl [Zoloft -] 25 mg PO DAILY 04/01/17 Lactobacillus Acidophilus [Bacid -] 1 each PO BID #30 capsule 04/03/17 Levofloxacin [Levaquin -] 500 mg PO DAILY #4 tablet 04/03/17 Metronidazole [Flagyl -] 500 mg PO TID #12 tablet 04/03/17 This patient is new to me today: No Emergency Visit: No Critical Care patient: No - Discharge Referral Referred to [facility] No
== END 2017-04-03 13:00 | disposition home or self-care (01) ==
LOC: JER 20:42 → JERBED 04-01 02:44 → UNDOADMOB 04-01 02:57 → JERBED 04-01 02:57 → J6S 04-01 05:22
PROVIDERS: ADMIT Internal Medicine; ATTEND Internal Medicine
PROC: 3E03329 Introduction of Other Anti-infective into Peripheral Vein, Percutaneous Approach (ICD-10-PCS; principal; 2017-04-01)
PROC: 3E0337Z Introduction of Electrolytic and Water Balance Substance into Peripheral Vein, Percutaneous Approach (ICD-10-PCS; 2017-04-01)
DX: K57.32 Diverticulitis of large intestine without perforation or abscess without bleeding (principal); Z80.0 Family history of malignant neoplasm of digestive organs; F32.9 Major depressive disorder, single episode, unspecified; F41.0 Panic disorder [episodic paroxysmal anxiety]
CPT/HCPCS: 36415; 71020-TC; 74177-TC; 80048; 80053; 81003; 81015; 85025; 87040; 87045; 87046; 87177; 87209; 87324; 87449; 93005; 93010; 99283-25; G0378; J1644

== ENCOUNTER 2017-04-20 14:51 | Emergency (ER) | payer OTHER ==
[2017-04-20 14:57] VITALS: BP 156/66; PULSE 94; TEMP 97.9; BMI 26.8
--- NOTE | 2017-04-20 15:05 | PDOC ---
History of Present Illness - General Chief Complaint: Hematuria Stated Complaint: RECTAL BLEED Time Seen by Provider: 04/20/17 15:02 History Source: Patient Exam Limitations: No Limitations - History of Present Illness Initial Comments: CHIEF COMPLAINT: 61 y/o afebrile female with PMH diverticulitis c/o blood in urine and dysuria today. HISTORY OF PRESENT ILLNESS: The patient states she started running yesterday for the first time in a while. She states today she woke up and had burning with urination, blood in her urine and she is urinating more frequently. She denies f/c, n/v/d, CP, SOB, back pain, flank pain, muscle soreness. Vital signs on arrival are within normal limits. REVIEW OF SYSTEMS: GENERAL/CONSTITUTIONAL: No fever/chills. No weakness. No weight change. HEAD, EYES, EARS, NOSE AND THROAT: No change in vision. No ear pain or discharge. No sore throat. CARDIOVASCULAR: No chest pain or shortness of breath. RESPIRATORY: No cough, wheezing, or hemoptysis. GASTROINTESTINAL: +lower abdominal discomfort. No nausea, vomiting, diarrhea. GENITOURINARY: +hematuria, dysuria and increased frequency. MUSCULOSKELETAL: No joint or muscle swelling or pain. No neck or back pain. SKIN: No rash or easy bruising. NEUROLOGIC: No headache, vertigo, loss of consciousness, or loss of sensation. PHYSICAL EXAM: GENERAL: The patient is awake, alert, and fully oriented, in no acute distress. She is well appearing, ambulatory, in NAD or obvious discomfort. HEAD: Normal with no signs of trauma. ENT: Pupils equal, round and reactive to light, extraocular movements intact, sclera anicteric, conjunctiva clear. Neck supple. LUNGS: Clear to auscultation bilaterally. Normal excursion. No respiratory distress or use of accessory muscles. CV: RRR, S1/S2, no MRG. Cap refill < 2 sec. ABDOMEN: Moderate TTP of suprapubic region. No flank pain. No rebound, guarding or rigidity. BACK: No CVA TTP b/l. EXTREMITIES: Normal range of motion, no edema. NEUROLOGICAL: Normal speech, normal gait. CN II-XII grossly intact. PSYCH: Normal mood, normal affect. SKIN: Warm, dry, normal turgor, no rashes or lesions noted. Past History - Past Medical History Allergies/Adverse Reactions: Allergies Allergy/AdvReac Type Severity Reaction Status Date / Time No Known Allergies Allergy Verified 04/20/17 14:54 Home Medications: Ambulatory Orders Sertraline HCl [Zoloft -] 25 mg PO DAILY 04/01/17 Sulfamethoxazole/Trimethoprim [Bactrim Ds -] 1 tab PO BID #14 tablet 04/20/17 Psychiatric Problems: Yes (anxiety) - Surgical History Cholecystectomy: Yes Orthopedic Surgery: Yes (Rt foot) - Immunization History Immunization Up to Date: Yes - Psycho/Social/Smoking Cessation Hx Anxiety: No Suicidal Ideation: No Smoking History: Never smoked Information on smoking cessation initiated: No Hx Alcohol Use: No Drug/Substance Use Hx: No Substance Use Type: None *Physical Exam - Vital Signs Last Vital Signs Temp Pulse Resp BP Pulse Ox 97.9 F 94 H 18 156/66 97 04/20/17 14:54 04/20/17 14:54 04/20/17 14:54 04/20/17 14:54 04/20/17 14:54 ED Treatment Course - LABORATORY CBC & Chemistry Diagram: 04/20/17 16:00 04/20/17 16:00 Medical Decision Making - Medical Decision Making A/P: 61 y/o afebrile female with signs and symptoms of UTI. Plan is as follows : 1. UA/culture 2. Will check basic labs Laboratory Tests 04/20/17 15:15 Urine Color Red Urine Appearance Clear Urine pH 6.5 Ur Specific [place] Pending Urine Protein 3+ H Urine Glucose (UA) Negative Urine Ketones Trace H Urine Blood 3+ H Urine Nitrite Positive Urine Bilirubin 2+ H Urine Urobilinogen 1.0 Ur Leukocyte Esterase 3+ H Urine RBC 3061 Urine WBC 1652 Urine Yeast Many Will treat for UTI with first dose of Bactrim. 15.1 WBC count without left shift. No fever. All other labs ok. WIll discharge to home with rx for bactrim. Instructed the patient to take abx as prescribed and drink lots of water. Suggested she f/u with her PCP within 1 week and return to the ER with any worsening or concerning symptoms, especially fever. The patient verbalizes understanding of all instructions, has no further questions and is awaiting discharge. *DC/Admit/Observation/Transfer Diagnosis at time of Disposition: Urinary tract infection Qualifiers: Urinary tract infection type: acute cystitis Hematuria presence: with hematuria Qualified Code(s): N30.01 - Acute cystitis with hematuria - Discharge Dispostion Disposition: HOME Condition at time of disposition: Good - Prescriptions Prescriptions: Sulfamethoxazole/Trimethoprim [Bactrim Ds -] 1 tab PO BID #14 tablet - Referrals Referrals: Kamila Metcalf MD [Primary Care Provider] - - Patient Instructions Printed Discharge Instructions: DI for Urinary Tract Infection (UTI) Additional Instructions: Discharge Instructions: -You have a Urinary tract infection -An antibiotic has been sent to your pharmacy; please take as prescribed -Drink plenty of water daily -Follow up with your doctor within 1 week. -Return to the ER with any worsening or concerning symptoms
[2017-04-20 15:20] LABS: PH,URINE 6.5 (5.0-8.0); URINE APPEARANCE CLEAR; URINE BILIRUBIN 2+ (NEGATIVE); URINE BLOOD 3+ (NEGATIVE); URINE COLOR RED; URINE GLUCOSE (UA) NEGATIVE (NEGATIVE); URINE KETONE TRACE (NEGATIVE)
[2017-04-20 15:22] LABS: URINE LEUK ESTERASE 3+ (NEGATIVE); URINE NITRITE POSITIVE (NEGATIVE); URINE PROTEIN 3+ (NEGATIVE)
[2017-04-20 15:24] LABS: URINE RBC 3061 /hpf (0-3); URINE WBC 1652 /hpf (3-5); YEAST MANY
[2017-04-20] MEDS ORDERED: SULFAMETHOXAZOLE/TRIMETHOPRIM 800MG/160MG D.S. TABLET PO ONE (15:36)
[2017-04-20] MEDS ORDERED: SULFAMETHOXAZOLE/TRIMETHOPRIM 800MG/160MG D.S. TABLET ONE (15:38)
[2017-04-20 16:23] LABS: BASOPHIL 0.2 % (0-2.0); EOSINOPHIL 1.3 % (0-4.5); MCH 30.2 pg (25.7-33.7); MCHC 33.7 g/dl (32.0-36.0); MEAN CELL VOLUME 89.5 fl (80-96); MEAN PLT VOLUME 7.8 fl (7.5-11.1); NEUTROPHILS 78.8 % (42.8-82.8); PLATELET COUNT 268 K/MM3 (134-434); RDW 13.8 % (11.6-15.6); WHITE BLOOD COUNT 15.1 K/mm3 (4.0-10.0)
[2017-04-20 16:46] LABS: ALBUMIN 3.3 g/dl (3.4-5.0); ANION GAP 5 (8-16); BILIRUBIN,TOTAL 0.2 mg/dL (0.2-1.0); CALCIUM 8.3 mg/dL (8.5-10.1); CO2 31 mmol/L (21-32); CREATININE 0.9 mg/dL (0.55-1.02); GLUCOSE,RANDOM 114 mg/dL (74-106); SGOT/AST 24 U/L (15-37); SGPT/ALT 30 U/L (12-78); TOT PROT 6.8 g/dl (6.4-8.2)
[2017-04-20 16:48] LABS: ALK PHOS 113 U/L (45-117)
--- NOTE | 2017-04-23 16:07 | PDOC ---
Patient Follow-up (Call Back) - Post ED Follow - Up Chief Complaint: Pain Condition at time of discharge: Good Disposition at time of original discharge: HOME Reason for Call Back: Abnwl. Microbiology (ESBL urine culture. sensitive to nitrofurantoin, pt needs script.) - Disposition Rx Needed: Yes (nitrofurantoin ) Additional Instructions/Notes: left message to call back. pt needs to be switched from bactrim to nitrofurantoin.
--- NOTE | 2017-04-23 18:55 | PDOC ---
Patient Follow-up (Call Back) - Post ED Follow - Up Condition at time of discharge: Good Disposition at time of original discharge: HOME - Disposition Additional Instructions/Notes: spoke to patient called in cristofer to [address] pt saw her PMD monday.
== END 2017-04-20 17:20 | disposition home or self-care (01) ==
LOC: JERFT 14:51
DX: N30.01 Acute cystitis with hematuria (principal)
CPT/HCPCS: 36415; 80053; 81003; 81015; 82553; 85025; 87086; 87186; 99281-25